=== PATIENT | male | born 1975 | race Caucasian/White ===

== ENCOUNTER 2020-07-08 20:46 | Emergency (ER) | payer SELFPAY ==
[2020-07-08 21:17] LABS: Urine Blood Negative (Negative); Urine Glucose Negative (Negative); Urine Protein Negative (Negative); Urine Specific Gravity 1.015 (1.005-1.030)
[2020-07-08] MEDS ORDERED: NA CHLORIDE 0.9% 1,000 ML ONE (21:25)
[2020-07-08 21:34] LABS: Absolute Lymphocytes (CBC) 2.6 K/uL (0.7-4.9); Basophils % 0.8 % (0-1.3); Hematocrit 37.7 % (39.6-49.0); Lymphocytes % 28.1 % (15.3-44.8); MPV 8.6 fL (7.6-11.3); RBC Red Blood Cell Count 4.08 M/uL (4.33-5.43)
[2020-07-08 21:37] LABS: Barbiturates NEGATIVE (NEGATIVE); Benzodiazepines NEGATIVE (NEGATIVE); Cocaine NEGATIVE (NEGATIVE); METHAMPHETAM NEGATIVE (NEGATIVE); Methadone NEGATIVE (NEGATIVE); Opiates NEGATIVE (NEGATIVE); Phencyclidine NEGATIVE (NEGATIVE); THC Cannibis POSITIVE (NEGATIVE)
[2020-07-08 21:37] LABS: Protime INR 1.03
[2020-07-08 21:54] LABS: ALT/SGPT 21 U/L (12-78); AST/SGOT 19 U/L (15-37); Albumin 3.9 g/dL (3.4-5.0); Alkaline Phosphatase 71 U/L (45-117); BUN Blood Urea Nitrogen 14 mg/dL (7-18); Bicarbonate 28 mmol/L (21-32); Bilirubin Direct 0.1 mg/dL (0-0.2); Bilirubin Total 0.4 mg/dL (0.2-1.0); Glucose Level 78 mg/dL (74-106); Potassium 3.9 mmol/L (3.5-5.1); Protein, Total 7.4 g/dL (6.4-8.2); Sodium Level 141 mmol/L (136-145)
--- NOTE | 2020-07-08 23:30 | EDPHYS ---
Physician Documentation [facility] Name: Nitin Scott Age: 44 yrs Sex: Male : 1975 Arrival Date: 07/08/2020 Time: 20:48 Bed 5 Private MD: ED Physician Bryon Wheeler HPI: 07/08 21:03 This 44 yrs old Male presents to ER via EMS with complaints of Headache. pm1 21:03 The patient complains of pain to the forehead. The patient describes the headache as pm1 aching. Onset: The symptoms/episode began/occurred today. Associated signs and symptoms: Pertinent positives: right ear pain, Pertinent negatives: fever, nausea, vomiting, vertigo. Severity of symptoms: in the emergency department the pain has improved. Headache History: Denies prior headaches. The symptoms are alleviated by nothing. the symptoms are aggravated by nothing. The patient has not experienced similar symptoms in the past. The patient has not recently seen a physician. Historical: - Allergies: 21:00 No Known Allergies; lp1 - Home Meds: 21:00 None [Active]; lp1 - PMHx: 21:00 Hypertension; lp1 - PSHx: 21:00 R leg sx; lp1 - Immunization history:: Adult Immunizations unknown. - Social history:: Smoking status: Patient reports the use of cigarette tobacco products. ROS: 21:03 Constitutional: Negative for fever, chills, and weight loss. pm1 21:03 Eyes: Negative for injury, pain, redness, and discharge. 21:03 Cardiovascular: Negative for chest pain, palpitations, and edema, Respiratory: Negative for shortness of breath, cough, wheezing, and pleuritic chest pain, Abdomen/GI: Negative for abdominal pain, nausea, vomiting, diarrhea, and constipation, Back: Negative for injury and pain, MS/Extremity: Negative for injury and deformity, Skin: Negative for injury, rash, and discoloration. 21:03 ENT: Positive for ear pain, sinus congestion, sinus pain, Negative for drainage from ear(s), sore throat. 21:03 Neuro: Positive for headache, Negative for numbness, tingling. Exam: 21:03 Constitutional: This is a well developed, well nourished patient who is awake, alert, pm1 and in no acute distress. Head/Face: Normocephalic, atraumatic. 21:03 Neck: Trachea midline, no thyromegaly or masses palpated, and no cervical lymphadenopathy. Supple, full range of motion without nuchal rigidity, or vertebral point tenderness. No Meningismus. 21:03 Back: No spinal tenderness. No costovertebral tenderness. Full range of motion. Skin: Warm, dry with normal turgor. Normal color with no rashes, no lesions, and no evidence of cellulitis. MS/ Extremity: Pulses equal, no cyanosis. Neurovascular intact. Full, normal range of motion. 21:03 Eyes: Exam is negative for acute changes, Extraocular movements: intact throughout, Conjunctiva: no acute changes. 21:03 ENT: Mouth: Lips: normal, Oral mucosa: normal, pink and intact, moist. 21:03 Cardiovascular: Rate: normal, Rhythm: regular, Pulses: no pulse deficits are appreciated. 21:03 Respiratory: Exam negative for acute changes, respiratory distress, shortness of breath. 21:03 Abdomen/GI: Inspection: abdomen appears normal, Palpation: abdomen is soft and non-tender, in all quadrants. 21:03 Neuro: Exam negative for acute changes, Orientation: is normal, Mentation: is normal, Motor: is normal, moves all fours. Vital Signs: 20:58 BP 140 / 97; Pulse 81; Resp 18; Temp 98.4(O); Pulse Ox 99% on R/A; Pain 2/10; lp1 21:30 BP 139 / 89; Pulse 82; Resp 18; Pulse Ox 99% on R/A; lp1 22:30 BP 144 / 89; Pulse 74; Resp 18; Pulse Ox 98% on R/A; lp1 23:30 BP 129 / 83; Pulse 73; Resp 18; Pulse Ox 98% on R/A; lp1 MDM: 21:06 Patient medically screened. pm1 23:28 Data reviewed: vital signs. Data interpreted: Pulse oximetry: on room air is 99 %. pm1 Interpretation: normal. Counseling: I had a detailed discussion with the patient and/or guardian regarding: the historical points, exam findings, and any diagnostic results supporting the discharge/admit diagnosis, lab results, radiology results, the need for outpatient follow up, to return to the emergency department if symptoms worsen or persist or if there are any questions or concerns that arise at home. 23:28 ED course: Patient with headache and sinus congestion. CT with mucosal thickening in pm1 the sphenoid and ethmoid sinuses. Will treat with antibiotics for sinusitis. 07/08 20:52 Order name: Acetaminophen pm07/08 20:52 Order name: Basic Metabolic Panel pm07/08 20:52 Order name: CBC with Diff 07/08 20:52 Order name: ETOH Level; Complete Time: 21:55 pm07/08 20:52 Order name: Hepatic Function; Complete Time: 22:37 pm07/08 20:52 Order name: PT-INR; Complete Time: 21:55 pm07/08 20:52 Order name: Ptt, Activated; Complete Time: 21:55 pm07/08 20:52 Order name: Salicylate; Complete Time: 21:55 pm07/08 20:52 Order name: Urine Drug Screen; Complete Time: 21:55 pm07/08 20:53 Order name: Acetaminophen Level; Complete Time: 22:37 EDAR 07/08 20:53 Order name: Basic Metabolic Panel; Complete Time: 22:37 EDAR 07/08 20:53 Order name: CBC with Automated Diff; Complete Time: 21:55 EDMS 07/08 20:59 Order name: CT Head Brain wo Cont 07/08 21:16 Order name: Urine Dipstick-Ancillary; Complete Time: 21:17 EDAR 07/08 20:52 Order name: EKG; Complete Time: 20:53 07/08 20:52 Order name: EKG - Nurse/Tech; Complete Time: 22:18 pm07/08 20:52 Order name: IV Saline Lock; Complete Time: 21:18 pm07/08 20:52 Order name: Labs collected and sent; Complete Time: 21:19 pm07/08 20:52 Order name: Suicide Screening ([place]); Complete Time: 22:44 pm07/08 20:52 Order name: Urine Dipstick-Ancillary (obtain specimen); Complete Time: 22:44 pm1 Administered Medications: 21:10 Drug: NS 0.9% 1000 ml Route: IV; Rate: 1000 ml; Site: right antecubital; lp1 23:43 Follow up: IV Status: Completed infusion; IV Intake: 1000ml lp1 23:39 Drug: TORadol (ketorolac) 30 mg Route: IVP; Site: right antecubital; lp1 23:56 Follow up: Response: No adverse reaction; Medication administered at discharge. lp1 Disposition: 07/09 06:19 Co-signature as Attending Physician, Bryon Wheeler MD. [email or web address] Disposition: 07/08/20 23:30 Discharged to Home. Impression: Headache, Alcohol abuse, Cannabis abuse. - Condition is Stable. - Discharge Instructions: Finding Treatment for Addiction, General Headache Without Cause, Cannabis Use Disorder, Alcohol Abuse and Nutrition. - Prescriptions for Amoxicillin 500 mg Oral Capsule - take 1 capsule by ORAL route every 8 hours for 10 days; 30 tablet. Diclofenac Sodium 75 mg Oral Tablet, Delayed Release (E.C.) - take 1 tablet by ORAL route 2 times per day As needed; 30 tablet. - Medication Reconciliation Form, Thank You Letter, Antibiotic Education, Prescription Opioid Use form. - Follow up: Emergency Department; When: As needed; Reason: Worsening of condition. Follow up: Private Physician; When: 2 - 3 days; Reason: Recheck today's complaints, Continuance of care, Re-evaluation by your physician. - Problem is new. - Symptoms have improved. Signatures: Dispatcher [employer] EDMS Danni Saldana RN RN lp1 Matthew Mata NP [employer]PER[employer] pm1 Bryon Wheeler MD MD 7 Corrections: (The following items were deleted from the chart) 07/08 23:56 23:30 07/08/2020 23:30 Discharged to Home. Impression: Headache; Alcohol abuse; lp1 Cannabis abuse. Condition is Stable. Forms are Medication Reconciliation Form, Thank You Letter, Antibiotic Education, Prescription Opioid Use. Follow up: Emergency Department; When: As needed; Reason: Worsening of condition. Follow up: Private Physician; When: 2 - 3 days; Reason: Recheck today's complaints, Continuance of care, Re-evaluation by your physician. Problem is new. Symptoms have improved. pm1
--- NOTE | 2020-07-08 23:30 | ER ---
Nurse's Notes [facility] Name: Nitin Scott Age: 44 yrs Sex: Male : 1975 Arrival Date: 07/08/2020 Time: 20:48 Bed 5 Private MD: Diagnosis: Headache;Alcohol abuse;Cannabis abuse Presentation: 07/08 20:48 Chief complaint: EMS states: was found sleeping on the sidewalk, was asked if he needed iw to go to ER, pt stated yes because he has a headache and ear pain and when he was asked what his address was he did not say the name of the street and that is not normal for him. Coronavirus screen: At this time, the client does not indicate any symptoms associated with coronavirus-19. Ebola Screen: Patient negative for fever greater than or equal to 101.5 degrees Fahrenheit, and additional compatible Ebola Virus Disease symptoms Patient denies exposure to infectious person. Patient denies travel to an Ebola-affected area in the 21 days before illness onset. No symptoms or risks identified at this time. Initial Sepsis Screen: Does the patient meet any 2 criteria? No. Patient's initial sepsis screen is negative. Does the patient have a suspected source of infection? No. Patient's initial sepsis screen is negative. Risk Assessment: Do you want to hurt yourself or someone else? Patient reports no desire to harm self or others. Onset of symptoms was July 08, 2020. 20:48 Method Of Arrival: EMS: [facility] iw 20:48 Acuity: NONA 3 iw Historical: - Allergies: 21:00 No Known Allergies; lp1 - Home Meds: 21:00 None [Active]; lp1 - PMHx: 21:00 Hypertension; lp1 - PSHx: 21:00 R leg sx; lp1 - Immunization history:: Adult Immunizations unknown. - Social history:: Smoking status: Patient reports the use of cigarette tobacco products. Screenin:00 Abuse screen: Denies threats or abuse. Denies injuries from another. Nutritional lp1 screening: No deficits noted. Tuberculosis screening: No symptoms or risk factors identified. Fall Risk None identified. Assessment: 21:00 General: Appears in no apparent distress. Behavior is calm, cooperative. Pain: lp1 Complains of pain in right ear Pain currently is 2 out of 10 on a pain scale. Neuro: Level of Consciousness is awake, alert, obeys commands, Oriented to person, place, time, situation, Moves all extremities. Full function Gait is steady, Facial symmetry appears normal, Pupils are PERRLA, Reports headache occipital area. Cardiovascular: Patient's skin is warm and dry. Respiratory: Respiratory effort is even, unlabored. GI: No signs and/or symptoms were reported involving the gastrointestinal system. : No signs and/or symptoms were reported regarding the genitourinary system. EENT: No signs and/or symptoms were reported regarding the EENT system. Derm: Skin is intact, Skin is dry, Skin is normal. Musculoskeletal: No deficits noted. 22:00 Reassessment: Patient appears in no apparent distress at this time. Patient resting, lp1 eyes closed, respirations even, unlabored. 23:00 Reassessment: Patient appears in no apparent distress at this time. No changes from lp1 previously documented assessment. Patient and/or family updated on plan of care and expected duration. Pain level reassessed. 23:20 Reassessment: Patient reports headache, 4/10 in pain scale. lp1 Vital Signs: 20:58 BP 140 / 97; Pulse 81; Resp 18; Temp 98.4(O); Pulse Ox 99% on R/A; Pain 2/10; lp1 21:30 BP 139 / 89; Pulse 82; Resp 18; Pulse Ox 99% on R/A; lp1 22:30 BP 144 / 89; Pulse 74; Resp 18; Pulse Ox 98% on R/A; lp1 23:30 BP 129 / 83; Pulse 73; Resp 18; Pulse Ox 98% on R/A; lp1 ED Course: 20:48 Patient arrived in ED. iw 20:51 Triage completed. iw 20:52 Matthew Mata NP is PHCP. pm1 20:52 Bryon Wheeler MD is Attending Physician. pm1 20:58 Danni Saldana, MARY BETH is Primary Nurse. lp1 20:58 Arm band placed on. lp1 21:00 Patient has correct armband on for positive identification. Placed in gown. Bed in low lp1 position. Pulse ox on. NIBP on. 21:18 Inserted saline lock: 20 gauge in right antecubital area, using aseptic technique. oe Blood collected. 22:03 CT Head Brain wo Cont In Process Unspecified. EDMS 23:55 No provider procedures requiring assistance completed. lp1 23:56 IV discontinued, No redness/swelling at site. Pressure dressing applied. lp1 Administered Medications: 21:10 Drug: NS 0.9% 1000 ml Route: IV; Rate: 1000 ml; Site: right antecubital; lp1 23:43 Follow up: IV Status: Completed infusion; IV Intake: 1000ml lp1 23:39 Drug: TORadol (ketorolac) 30 mg Route: IVP; Site: right antecubital; lp1 23:56 Follow up: Response: No adverse reaction; Medication administered at discharge. lp1 Intake: 23:43 IV: 1000ml; Total: 1000ml. lp1 Outcome: 23:30 Discharge ordered by MD. pm1 23:56 Discharged to home ambulatory. lp1 23:56 Condition: good 23:56 Discharge instructions given to patient, Instructed on discharge instructions, follow up and referral plans. medication usage, Demonstrated understanding of instructions, follow-up care, medications, Prescriptions given X 2. 23:56 Patient left the ED. lp1 Signatures: Dispatcher [employer] EDMS Agnes Lanza, RN MARY BETH iw Danni Saldana RN RN lp1 Matthew Mata, NEON SIGN MECHANIC NEON SIGN MECHANIC pm1 Luigi Nolasco
[2020-07-08] MEDS ORDERED: KETOROLAC 30 MG/ML INJ ONE (23:58)
[2020-07-09 00:31] VITALS: TEMP 98.4
[2020-07-09 00:32] VITALS: O2SAT 98
[2020-07-09 00:33] VITALS: BP 129/83
--- NOTE | 2020-07-09 10:47 | EKG ---
Test Date: 2020-07-08 Test Time: 22:12:57 Catering Cook: LORE MEASUREMENT RESULTS: Intervals: Rate: 79 [place]: 154 QRSD: 82 QT: 356 QTc: 408 [place]: P: 76 [place]: 154 QRS: 75 T: 47 INTERPRETIVE STATEMENTS: Normal sinus rhythm with sinus arrhythmia Normal ECG No previous ECG available for comparison Electronically Signed On 07-09-20 10:46:34 CDT by Thomas Hwang
--- NOTE | 2020-07-10 10:38 | RAD REPORT ---
EXAM DESCRIPTION: CT - Head Brain Wo Cont - 07/09/2020 3:19 am CLINICAL HISTORY: 44 years Male HEADACHE TECHNIQUE: Contiguous axial CT images obtained through the brain without IV contrast. Coronal and sa gittal reformats also provided. This CT exam was performed according to our departmental dose-optimization program, which includes on e or more of the following dose reduction techniques: automated exposure control, adjustment of the m A and/or kV according to patient size, and/or use of iterative reconstruction technique. COMPARISON: No prior exams provided for comparison. FINDINGS: There is no intracranial hemorrhage, extra-axial collection, or acute transcortical infarc tion. The ventricles are normal in size and contour without mass-effect or midline shift. Osseous structures are normal. Mild mucosal thickening in the sphenoid and ethmoid sinuses. The masto id air cells are clear. IMPRESSION: Mild mucosal thickening in the sphenoid and ethmoid sinuses. No other acute abnormalitie s in the brain. Electronically signed by: America Richardson MD 07/08/2020 10:31 PM CDT Due to temporary technical issues with the PACS/Fluency reporting system, reports are being signed by the in house radiologists without review as a courtesy to insure prompt reporting. The interpreting radiologist is fully responsible for the content of the report.
== END 2020-07-08 23:56 | disposition home or self-care (01) ==
LOC: ER 20:46
DX: R51.9 Headache, unspecified (principal); F10.10 Alcohol abuse, uncomplicated; F12.10 Cannabis abuse, uncomplicated; I10 Essential (primary) hypertension; F17.210 Nicotine dependence, cigarettes, uncomplicated
CPT/HCPCS: 36415; 70450; 80048; 80076; 80307; 80320; 80329; 81003; 85025; 85610; 85730; 93005; 96361; 96374; 99284; J7030